=== PATIENT | male | born 1950 | race Hispanic/Latino ===

== ENCOUNTER → 2024-01-29 | Outpatient (CLI) | payer OTHER ==
[~2024-01-29] MED LIST: AMIO200T68 PO; APIX5TAB PO; ASPI-1443 PO; ATOR10 PO; EMPA10TA PO; FERS325 PO; FOLI0.8T22 PO; FURO20TA6 PO; GLYB5TAB8 PO; INSLAN SQ; LISI5TAB21 PO; METO-408 PO; SPIR25TA PO
== END | disposition home or self-care (01) ==
LOC: RAH 12:05
PROVIDERS: ATTEND Urology
DX: C64.2 Malignant neoplasm of left kidney, except renal pelvis (principal); N28.1 Cyst of kidney, acquired
CPT/HCPCS: 76770